=== PATIENT | male | born 1995 | race Caucasian/White ===

== ENCOUNTER 2023-04-09 12:50 | Day surgery (SDC) | payer OTHER ==
[~2023-04-09] VITALS: Ht 172.7 cm; Wt 107.4 kg
[~2023-04-09 12:50] MED LIST: DULO30CA9 PO; LOSA100T8 PO; NS 1,000 ML IV ONE
[2023-04-09] MEDS ORDERED: fentaNYL 100 MCG/2 ML INJECTION As Ordered ONE (14:06)
[2023-04-09] MEDS ORDERED: LIDOCAINE 2% 100MG/5ML SDV (FOR ANES.) As Ordered ONE (14:08)
[2023-04-09] MEDS ORDERED: propofoL 200 MG/20 ML VIAL As Ordered ONE (14:09)
[2023-04-09 14:59] VITALS: TEMP 97.6
[2023-04-09 15:11] VITALS: BP 143/69; O2SAT 98
== END 2023-04-09 15:12 | disposition home or self-care (01) ==
LOC: M OPP 12:50
PROVIDERS: ATTEND Internal Medicine Gastroenterology
DX: K22.89 Other specified disease of esophagus (principal); K31.89 Other diseases of stomach and duodenum; R12 Heartburn; F17.220 Nicotine dependence, chewing tobacco, uncomplicated; Z79.899 Other long term (current) drug therapy
CPT/HCPCS: 43239; 88305; J3010

== ENCOUNTER → 2024-07-03 | Outpatient (CLI) | payer OTHER ==
[~2024-07-03] MED LIST changes: +LIDOCAINE 1% MDV 20ML VIAL As Ordered ONE; -NS 1,000 ML IV ONE
[2024-07-03 13:40] VITALS: TEMP 97.9
[2024-07-03 14:43] VITALS: BP 154/76; O2SAT 99
== END ==
LOC: M IRPRO 13:23
PROVIDERS: ATTEND Physician Assistant Medical
DX: R22.1 Localized swelling, mass and lump, neck (principal)